=== PATIENT | female | born 1930 | race Two or more races ===

== ENCOUNTER 2016-04-28 00:54 | Inpatient (IN) | payer MEDICARE, MEDICAID ==
[~2016-04-28] VITALS: Ht 162.6 cm; Wt 92.2 kg
[~2016-04-28 00:54] MED LIST: AMLO10TA2 OR; ASPI81CH43 GT; CAR125T OR; DIPH25TA26 OR; ESOM40CA39 OR; ISOS1TAB37 OR; METO-159 PO; SIMV-13 OR; TRIATAB3 OR; [UNRECOGNIZED DRUG - CODE] OR
[2016-04-28 01:40] LABS: Basophils # (auto) 0 uL; Basophils % (auto) 0.6 % (0.0-2.0); Eosinophils # (auto) 0.2 uL; Eosinophils % (auto) 2.4 % (0.0-7.0); Hemoglobin 12.5 g/dL (12.2-16.2); Lymphocytes # (auto) 1.7 uL; Lymphocytes % (auto) 25.8 % (10.0-50.0); Mean Corpuscular Hemoglobin 30.4 pg (28.0-32.0); Mean Corpuscular Hgb Conc. 32.9 g/dL (32.0-36.0); Mean Corpuscular Volume 92.4 fL (80.0-100.0); Mean Platelet Volume 7.5 fL (7.4-10.4); Monocytes # (auto) 0.4 uL; Monocytes % (auto) 5.7 % (0.0-12.0); Neutrophils # (auto) 4.4 uL; Neutrophils % (auto) 65.5 % (37.0-80.0); Platelet Count (auto) 332 10^3/uL (140-450); Red Cell Distribution Width 14.5 % (11.6-16.0); White Blood Cell 6.7 10^3/uL (4.4-10.8)
[2016-04-28 01:56] LABS: Albumin 3.8 g/dL (3.4-5.0); BUN/Creatinine Ratio 25.2; Calcium 9.2 mg/dL (8.5-10.1)
[2016-04-28 01:59] LABS: Bilirubin, Total 0.3 mg/dL (0.2-1.0); Total Protein 7.9 g/dL (6.4-8.2)
[2016-04-28] MEDS ORDERED: SODIUM CHLORIDE 0.9% 1,000 ML IV ONE (06:00)
[2016-04-28] MEDS ORDERED: ASPirin 81 mg TAB PO ONE (06:15)
[2016-04-28] MEDS ORDERED: SODIUM CHLORIDE 0.9% 1,000 ML IV SCH (07:18)
[2016-04-28 08:02] LABS: Urine RBC None Seen /hpf (0 - 4)
[2016-04-28 08:44] LABS: Urine Bilirubin Negative (Negative); Urine Blood Negative /uL (Negative); Urine Color Yellow (Yellow); Urine Glucose Normal (Normal); Urine Ketone Negative (Negative); Urine Nitrite Negative (Negative); Urine Squamous Epithelial Cell FEW /hpf (<5); Urine Urobilinogen Normal (Negative)
[2016-04-28] MEDS ORDERED: LOSA25TA9 PO (08:45)
[2016-04-28 08:47] VITALS: BP 152/76
[2016-04-28] MEDS: TRIAMTERENE/HCTZ 37.5/25 MG CAP PO SCH (08:49)
[2016-04-28] MEDS: ENOXAPARIN SOD 40 MG/0.4 ML SYRINGE SC SCH (08:50)
[2016-04-28] MEDS: VALSARTAN 80 MG TAB PO SCH (08:50)
[2016-04-28] MEDS: PANTOPRAZOLE SODIUM 40 MG/10 ML VIAL IV SCH (08:51)
[2016-04-28] MEDS: ISOSORBIDE MONONITRATE 60 MG TAB PO SCH (08:51)
[2016-04-28] MEDS: amLODIPine BESYLATE 5 MG TAB PO SCH (08:53)
[2016-04-28] MEDS ORDERED: METOPROLOL TARTRATE 50 MG TAB PO SCH (10:00)
[2016-04-28] MEDS ORDERED: CARVEDILOL 12.5 MG TAB PO SCH (10:00)
[2016-04-28] MEDS ORDERED: HYDR25TA4 PO (10:00)
[2016-04-28] MEDS ORDERED: LORazepam 2MG/ML-1ML VIAL IV ONE (10:30)
[2016-04-28] MEDS: SODIUM CHLORIDE 0.9% 1,000 ML IV SCH ×2 (10:40→14:56)
[2016-04-28 13:00] VITALS: BP 140/56
[2016-04-28 16:50] VITALS: BP 132/69
[2016-04-28 21:35] VITALS: BP 131/65
[2016-04-28] MEDS: ATORVASTATIN 20 MG TAB PO SCH (22:04)
[2016-04-28 22:57] VITALS: BP 131/65
[2016-04-29 04:40] VITALS: BP 152/76
[2016-04-29] MEDS: SODIUM CHLORIDE 0.9% 1,000 ML IV SCH ×2 (06:06→16:00)
[2016-04-29 06:07] LABS: Basophils # (auto) 0 uL; Basophils % (auto) 0.6 % (0.0-2.0); Eosinophils # (auto) 0.2 uL; Eosinophils % (auto) 3.6 % (0.0-7.0); Hematocrit 32.5 % (36.0-46.0); Hemoglobin 10.8 g/dL (12.2-16.2); Lymphocytes # (auto) 1.7 uL; Lymphocytes % (auto) 32.2 % (10.0-50.0); Mean Corpuscular Hemoglobin 30.8 pg (28.0-32.0); Mean Corpuscular Hgb Conc. 33.3 g/dL (32.0-36.0); Mean Corpuscular Volume 92.6 fL (80.0-100.0); Mean Platelet Volume 7.8 fL (7.4-10.4); Monocytes # (auto) 0.4 uL; Monocytes % (auto) 6.8 % (0.0-12.0); Neutrophils % (auto) 56.8 % (37.0-80.0); Platelet Count (auto) 279 10^3/uL (140-450); Red Cell Distribution Width 14.7 % (11.6-16.0); White Blood Cell 5.3 10^3/uL (4.4-10.8)
[2016-04-29 06:27] LABS: Albumin 3.1 g/dL (3.4-5.0); BUN/Creatinine Ratio 20.2; Bilirubin, Total 0.3 mg/dL (0.2-1.0); Calcium 8.5 mg/dL (8.5-10.1); Potassium 4.1 mmol/L (3.5-5.1); Total Protein 6.2 g/dL (6.4-8.2)
[2016-04-29] MEDS: ISOSORBIDE MONONITRATE 60 MG TAB PO SCH (07:02)
[2016-04-29 09:02] VITALS: BP 159/78
[2016-04-29] MEDS: TRIAMTERENE/HCTZ 37.5/25 MG CAP PO SCH (09:43)
[2016-04-29] MEDS: ASPirin 81 mg TAB PO SCH (09:44)
[2016-04-29] MEDS: VALSARTAN 80 MG TAB PO SCH (09:44)
[2016-04-29] MEDS: amLODIPine BESYLATE 5 MG TAB PO SCH (09:45)
[2016-04-29] MEDS: ENOXAPARIN SOD 40 MG/0.4 ML SYRINGE SC SCH (10:00)
[2016-04-29] MEDS: METOPROLOL SUCCINATE XL 50 MG TAB PO SCH (10:42)
[2016-04-29] MEDS: PANTOPRAZOLE SODIUM 40 MG/10 ML VIAL IV SCH (10:43)
[2016-04-29 13:51] VITALS: BP 115/69
[2016-04-29 17:09] VITALS: BP 133/74
[2016-04-29] MEDS: ATORVASTATIN 20 MG TAB PO SCH (21:41)
[2016-04-29] MEDS: ACETAMINOPHEN 325 MG TAB PO PRN (21:42)
[2016-04-29 22:00] VITALS: BP 125/65
[2016-04-30] MEDS: SODIUM CHLORIDE 0.9% 1,000 ML IV SCH ×3 (02:00→22:00)
[2016-04-30 05:01] VITALS: BP 146/69
[2016-04-30] MEDS: ISOSORBIDE MONONITRATE 60 MG TAB PO SCH (06:31)
[2016-04-30] MEDS: amLODIPine BESYLATE 5 MG TAB PO SCH (09:23)
[2016-04-30] MEDS: VALSARTAN 80 MG TAB PO SCH (09:23)
[2016-04-30] MEDS: TRIAMTERENE/HCTZ 37.5/25 MG CAP PO SCH (09:24)
[2016-04-30] MEDS: PANTOPRAZOLE SODIUM 40 MG/10 ML VIAL IV SCH (09:24)
[2016-04-30] MEDS: ASPirin 81 mg TAB PO SCH (09:24)
[2016-04-30] MEDS: METOPROLOL SUCCINATE XL 50 MG TAB PO SCH (09:25)
[2016-04-30 09:27] VITALS: BP_SYST 137; BP_SYST 157; BP_DIAS 71; BP_DIAS 76
[2016-04-30] MEDS: ENOXAPARIN SOD 40 MG/0.4 ML SYRINGE SC SCH (10:00)
[2016-04-30 13:00] VITALS: BP 128/74
[2016-04-30] MEDS: ACETAMINOPHEN 325 MG TAB PO PRN (13:58)
[2016-04-30 16:39] VITALS: BP 120/54
[2016-04-30 22:00] VITALS: BP 125/63
[2016-04-30] MEDS: ATORVASTATIN 20 MG TAB PO SCH (22:04)
[2016-05-01 05:00] VITALS: BP 150/73
[2016-05-01] MEDS: ISOSORBIDE MONONITRATE 60 MG TAB PO SCH (06:32)
[2016-05-01 08:49] VITALS: BP 125/57
[2016-05-01] MEDS ORDERED: ADENOSINE 77 MG in GIVE UN-DILUTED 0 ML IV ONE (10:15)
[2016-05-01] MEDS: TRIAMTERENE/HCTZ 37.5/25 MG CAP PO SCH (11:50)
[2016-05-01] MEDS: METOPROLOL SUCCINATE XL 50 MG TAB PO SCH (11:51)
[2016-05-01] MEDS: VALSARTAN 80 MG TAB PO SCH (11:51)
[2016-05-01] MEDS: ASPirin 81 mg TAB PO SCH (11:51)
[2016-05-01] MEDS: PANTOPRAZOLE SODIUM 40 MG/10 ML VIAL IV SCH (11:51)
[2016-05-01] MEDS: amLODIPine BESYLATE 5 MG TAB PO SCH (11:51)
[2016-05-01] MEDS: ENOXAPARIN SOD 40 MG/0.4 ML SYRINGE SC SCH (11:52)
[2016-05-01] MEDS: SODIUM CHLORIDE 0.9% 1,000 ML IV SCH ×2 (12:17→18:29)
[2016-05-01 13:00] VITALS: BP 136/66
[2016-05-01] MEDS ORDERED: LORazepam 2MG/ML-1ML VIAL IV PRN (14:00)
[2016-05-01 16:57] VITALS: BP 111/65
[2016-05-01 21:24] VITALS: BP 123/67
[2016-05-01 21:46] VITALS: BP 123/67
[2016-05-01] MEDS: ATORVASTATIN 20 MG TAB PO SCH (22:19)
[2016-05-02] VITALS (7 sets, daily range): BP systolic 120–173; BP diastolic 61–119
[2016-05-02] MEDS: SODIUM CHLORIDE 0.9% 1,000 ML IV SCH (04:00)
[2016-05-02] MEDS: ISOSORBIDE MONONITRATE 60 MG TAB PO SCH (06:32)
[2016-05-02] MEDS: ASPirin 81 mg TAB PO SCH (10:43)
[2016-05-02] MEDS: amLODIPine BESYLATE 5 MG TAB PO SCH (10:43)
[2016-05-02] MEDS: TRIAMTERENE/HCTZ 37.5/25 MG CAP PO SCH (10:44)
[2016-05-02] MEDS: VALSARTAN 80 MG TAB PO SCH (10:44)
[2016-05-02] MEDS: PANTOPRAZOLE SODIUM 40 MG/10 ML VIAL IV SCH (10:45)
[2016-05-02] MEDS: ENOXAPARIN SOD 40 MG/0.4 ML SYRINGE SC SCH (10:45)
[2016-05-02] MEDS: METOPROLOL SUCCINATE XL 50 MG TAB PO SCH (10:45)
== END 2016-05-02 17:05 | disposition home or self-care (01) | DRG 684 ==
LOC: ER 00:56 → OVERFLOW 00:57 → WEST WING 08:26
PROVIDERS: ADMIT Family Medicine; ATTEND Internal Medicine Pulmonary Disease
DX: N17.9 Acute kidney failure, unspecified (principal); E86.0 Dehydration; I25.10 Atherosclerotic heart disease of native coronary artery without angina pectoris; R07.9 Chest pain, unspecified; G47.33 Obstructive sleep apnea (adult) (pediatric); H02.402 Unspecified ptosis of left eyelid; I10 Essential (primary) hypertension; K21.9 Gastro-esophageal reflux disease without esophagitis; R42 Dizziness and giddiness; M19.90 Unspecified osteoarthritis, unspecified site; R51 Headache; E66.9 Obesity, unspecified; I25.2 Old myocardial infarction; Z79.82 Long term (current) use of aspirin; Z79.899 Other long term (current) drug therapy; Z84.89 Family history of other specified conditions; Z68.34 Body mass index [BMI] 34.0-34.9, adult
CPT/HCPCS: 36415; 36600; 70450; 70545; 70551; 71010; 78452; 80053; 80061; 81001; 82805; 84484; 85025; 85049; 93005; 93017; 94660; 96360; C9113; J0153

== ENCOUNTER → 2017-08-14 | Outpatient (CLI) | payer MEDICARE, MEDICAID ==
[~2017-08-14] MED LIST changes: -AMLO10TA2 OR; -CAR125T OR; -DIPH25TA26 OR; -ESOM40CA39 OR; +HYDR25TA4 PO; -ISOS1TAB37 OR; +LOSA25TA9 PO; -METO-159 PO; -SIMV-13 OR; -TRIATAB3 OR; -[UNRECOGNIZED DRUG - CODE] OR
[2017-08-14 13:54] LABS: BUN/Creatinine Ratio 21.6; Calcium 9.9 mg/dL (8.5-10.1); Potassium 3.9 mmol/L (3.5-5.1)
== END | disposition home or self-care (01) ==
LOC: LAB 12:52
PROVIDERS: ATTEND Internal Medicine Cardiovascular Disease
DX: I12.9 Hypertensive chronic kidney disease with stage 1 through stage 4 chronic kidney disease, or unspecified chronic kidney disease (principal); N18.3 Chronic kidney disease, stage 3 (moderate); R73.09 Other abnormal glucose; M06.9 Rheumatoid arthritis, unspecified; E78.5 Hyperlipidemia, unspecified; Z79.82 Long term (current) use of aspirin; Z79.899 Other long term (current) drug therapy
CPT/HCPCS: 36415; 80048; 83880

== ENCOUNTER → 2017-08-14 | Outpatient (CLI) | payer MEDICARE, MEDICAID | END | disposition home or self-care (01) | LOC: XYW 10:35 | PROVIDERS: ATTEND Internal Medicine Cardiovascular Disease | DX: I08.0 Rheumatic disorders of both mitral and aortic valves (principal); I10 Essential (primary) hypertension | CPT/HCPCS: 93306 ==

== ENCOUNTER → 2018-06-17 | Outpatient (CLI) | payer MEDICARE, MEDICAID ==
[~2018-06-17] MED LIST changes: +LOSA25TA40 PO; -LOSA25TA9 PO
[2018-06-17 13:10] LABS: Basophils # (auto) 0 uL; Basophils % (auto) 0.4 % (0.0-2.0); Eosinophils # (auto) 0.2 uL; Eosinophils % (auto) 4.1 % (0.0-7.0); Hematocrit 39.5 % (36.0-46.0); Hemoglobin 13.4 g/dL (12.2-16.2); Lymphocytes # (auto) 2.2 uL; Lymphocytes % (auto) 39.4 % (10.0-50.0); Mean Corpuscular Hemoglobin 31.9 pg (28.0-32.0); Mean Corpuscular Hgb Conc. 33.9 g/dL (32.0-36.0); Mean Corpuscular Volume 94.2 fL (80.0-100.0); Monocytes # (auto) 0.3 uL; Monocytes % (auto) 5.3 % (0.0-12.0); Neutrophils # (auto) 2.8 uL; Neutrophils % (auto) 50.8 % (37.0-80.0); Platelet Count (auto) 278 10^3/uL (140-450); Red Blood Cells 4.19 10^6/uL (4.0-5.20); Red Cell Distribution Width 13.4 % (11.8-14.3); White Blood Cell 5.5 10^3/uL (4.4-10.8)
[2018-06-17 13:34] LABS: Potassium 4.3 mmol/L (3.5-5.1)
[2018-06-17 13:43] LABS: BUN/Creatinine Ratio 18.4; Bilirubin, Total 0.4 mg/dL (0.2-1.0); Calcium 9.7 mg/dL (8.5-10.1); Total Protein 8.2 g/dL (6.4-8.2)
== END | disposition home or self-care (01) ==
LOC: LAB 10:58
PROVIDERS: ATTEND Family Medicine
DX: I11.0 Hypertensive heart disease with heart failure (principal); I50.42 Chronic combined systolic (congestive) and diastolic (congestive) heart failure; E55.9 Vitamin D deficiency, unspecified; Z82.49 Family history of ischemic heart disease and other diseases of the circulatory system
CPT/HCPCS: 36415; 80053; 80061; 82306; 82607; 84443; 85025

== ENCOUNTER → 2019-10-03 | Outpatient (CLI) | payer MEDICARE, MEDICAID ==
[~2019-10-03] MED LIST changes: +LOSA25TA38 PO; -LOSA25TA40 PO
[2019-10-03 11:37] LABS: Basophils # (auto) 0 10 ^3/uL (0-0.2); Basophils % (auto) 0.5 % (0.0-2.0); Eosinophils # (auto) 0.2 10 ^3/uL (0-0.8); Eosinophils % (auto) 4.5 % (0.0-7.0); Hematocrit 37.7 % (36.0-46.0); Hemoglobin 12.5 g/dL (12.2-16.2); Lymphocytes # (auto) 1.9 10 ^3/uL (0.4-5.4); Lymphocytes % (auto) 35.8 % (10.0-50.0); Mean Corpuscular Hemoglobin 30.2 pg (28.0-32.0); Mean Corpuscular Hgb Conc. 33.1 g/dL (32.0-36.0); Mean Corpuscular Volume 91.4 fL (80.0-100.0); Monocytes # (auto) 0.3 10 ^3/uL (0-1.3); Monocytes % (auto) 5.7 % (0.0-12.0); Neutrophils # (auto) 2.9 10 ^3/uL (1.6-8.6); Neutrophils % (auto) 53.5 % (37.0-80.0); Platelet Count (auto) 300 10^3/uL (140-450); Red Blood Cells 4.12 10^6/uL (4.0-5.20); Red Cell Distribution Width 14.3 % (11.8-14.3); White Blood Cell 5.4 10^3/uL (4.4-10.8)
[2019-10-03 12:27] LABS: Albumin 3.8 g/dL (3.4-5.0); BUN/Creatinine Ratio 21.4; Calcium 9.2 mg/dL (8.5-10.1); Potassium 4.2 mmol/L (3.5-5.1)
[2019-10-03 12:30] LABS: Bilirubin, Total 0.5 mg/dL (0.2-1.0); Total Protein 7.8 g/dL (6.4-8.2)
== END | disposition home or self-care (01) ==
LOC: LAB 11:11
PROVIDERS: ATTEND Nurse Practitioner
DX: I11.0 Hypertensive heart disease with heart failure (principal); I50.9 Heart failure, unspecified; E78.5 Hyperlipidemia, unspecified
CPT/HCPCS: 36415; 80053; 80061; 83880; 84443; 85025

== ENCOUNTER → 2019-12-11 | Outpatient (CLI) | payer MEDICARE, MEDICAID | END | disposition home or self-care (01) | LOC: XYW 09:01 | PROVIDERS: ATTEND Internal Medicine | DX: R07.9 Chest pain, unspecified (principal) | CPT/HCPCS: 93306 ==

== ENCOUNTER → 2019-12-24 | Outpatient (CLI) | payer MEDICARE, MEDICAID ==
[~2019-12-24] VITALS: Ht 165.1 cm; Wt 72.1 kg
[~2019-12-24] MED LIST changes: +ADENOSINE 61 MG in GIVE UN-DILUTED 0 ML IV STA
== END | disposition home or self-care (01) ==
LOC: RT 08:02
PROVIDERS: ATTEND Internal Medicine
DX: I87.2 Venous insufficiency (chronic) (peripheral) (principal); I11.0 Hypertensive heart disease with heart failure
CPT/HCPCS: 78452; 93017; A9500; J0153

== ENCOUNTER → 2020-03-26 | Outpatient (CLI) | payer MEDICARE, MEDICAID ==
[~2020-03-26] MED LIST changes: -ADENOSINE 61 MG in GIVE UN-DILUTED 0 ML IV STA
== END | disposition home or self-care (01) ==
LOC: LAB 13:39
PROVIDERS: ATTEND Nurse Practitioner Family
DX: U07.1 COVID-19 (principal)
CPT/HCPCS: C9803; U0003